=== PATIENT | female | born 1960 | race Hispanic/Latino ===

== ENCOUNTER → 2023-02-03 | Outpatient (CLI) | payer BC | END | disposition home or self-care (01) | LOC: RAH 12:55 | PROVIDERS: ATTEND Physical Medicine & Rehabilitation | DX: M43.16 Spondylolisthesis, lumbar region (principal); M54.51 Vertebrogenic low back pain; M41.56 Other secondary scoliosis, lumbar region; M47.816 Spondylosis without myelopathy or radiculopathy, lumbar region | CPT/HCPCS: 72114 ==

== ENCOUNTER → 2023-03-18 | Outpatient (CLI) | payer BC | END | disposition home or self-care (01) | LOC: RAH 08:34 | PROVIDERS: ATTEND Physical Medicine & Rehabilitation | DX: M85.80 Other specified disorders of bone density and structure, unspecified site (principal) | CPT/HCPCS: 77080 ==

== ENCOUNTER → 2024-09-20 | Outpatient (CLI) | payer BC ==
--- NOTE | 2024-09-20 12:34 | HMCIMG ---
CERV SPINE 4-5 VWS REASON: CERVICALGIA, BENDING FILMS. COMPARISON: None TECHNIQUE: 5 images of cervical spine were obtained including flexion and extension views. FINDINGS: There are degenerative changes with cervical spine spondylosis. Disc space narrowings are seen at C5-6 and C6-7 levels. IMPRESSION: DJD with cervical spine spondylosis.
== END | disposition home or self-care (01) ==
LOC: RAH 11:03
PROVIDERS: ATTEND Physical Medicine & Rehabilitation
DX: M47.812 Spondylosis without myelopathy or radiculopathy, cervical region (principal); M48.02 Spinal stenosis, cervical region; M54.2 Cervicalgia; M99.01 Segmental and somatic dysfunction of cervical region
CPT/HCPCS: 72050

== ENCOUNTER → 2024-10-05 | Outpatient (CLI) | payer BC ==
[~2024-10-05] MED LIST: GADOTERATE MEGLUMINE 10 MMOL/20 ML VIAL IV ONE
--- NOTE | 2024-10-05 12:15 | HMCIMG ---
MRI ABDOMEN WITH AND WITHOUT CONTRAST INDICATION: Pain. COMPARISON: None. TECHNIQUE: Multisequence multiplanar imaging of the abdomen was obtained with and without IV contrast. Approximately 15 mL of IV Clariscan contrast was administered for the postcontrast portion of the study. FINDINGS: Visible lungs are clear and MR imaging. Heart size is normal. 8.5 cm simple cyst arising anteriorly off the right kidney at its midportion. A few tiny simple cysts scattered throughout both kidneys without hydronephrosis. Several tiny simple cysts scattered throughout the liver, largest within the superomedial right hepatic lobe measuring up to 1.3 cm and 1.8 cm. Liver is normal in size and smooth in contour without biliary duct dilation. Spleen, pancreas, gallbladder, pancreatic duct, stomach, adrenal glands, and visible small bowel loops appear normal. Moderate stool burden. No evidence for intra-abdominal free fluid or lymphadenopathy. Shallow lumbar dextroscoliosis. Overlying soft tissues and musculature appear normal. No evidence for any abnormal enhancement. IMPRESSION: Simple bilateral renal cysts and simple hepatic cysts without any enhancing lesion/mass.
== END ==
LOC: RAH 07:30
PROVIDERS: ATTEND Internal Medicine Gastroenterology
DX: N28.1 Cyst of kidney, acquired (principal); K76.89 Other specified diseases of liver; M41.86 Other forms of scoliosis, lumbar region
CPT/HCPCS: 74183; A9575